=== PATIENT | male | born 1975 | race Caucasian/White ===

== ENCOUNTER 2023-07-04 08:56 | Outpatient (CLI) | payer OTHER ==
--- NOTE | 2023-07-06 14:31 | MRI Report ---
PROCEDURE: Shoulder LT WO INDICATIONS: L SHOULDER PAIN TECHNIQUE: Noncontrast oblique coronal T2 fast spin echo with fat saturation, oblique sagittal T1 spin echo and T2 fast spin echo with fat saturation, axial T1 spin echo and T2 fast spin echo with fat saturation t hrough the shoulder. COMPARISON: Shoulder radiograph dated 06/23/2021 and shoulder MRI dated 09/27/2020. FINDINGS: Image quality: Excellent. Rotator cuff: Full-thickness rupture involving distal supraspinatus at its insertion on humeral head is seen with up to 3.1 cm medial retraction of torn tendon fibers to the level of acromion. Moderate to high-grade articular surface partial-thickness tear involving distal infraspinatus at its insertio n on humeral head is also seen extending to muscular tendinous junction. Distal subscapularis tendon is intact. Mild supraspinatus muscle atrophy is noted on sagittal images. Bones and bursae: No bone marrow contusions or fractures. Moderate acromioclavicular joint osteoarth ritic changes are seen with joint space narrowing, subchondral sclerosis and downward osteophyte form ation depressing on musculotendinous junction of supraspinatus. Moderate joint effusion and subacromi al subdeltoid bursal fluid is seen, no gross loose bodies. Capsule and soft tissues: In the absence of intra-articular contrast, the labrum and glenohumeral li gaments appear intact. The long head of the biceps tendon demonstrates normal location and morpholog y. The rotator interval appears normal, without fibrosis. The coracohumeral ligament is normal in t hickness. IMPRESSION: 1. Full-thickness rupture involving distal supraspinatus at its insertion on humeral head with up to 3.1 cm medial retraction of torn tendon fibers to the level of acromion. Moderate grade articular chau face partial-thickness involving distal infraspinatus extending to muscular tendinous junction. Mild supraspinatus muscle atrophy. 2. Moderate acromioclavicular joint osteoarthritis. No fracture or dislocation. Moderate joint effusi on and subacromial subdeltoid bursal fluid, no gross loose bodies. 3. No evidence of focal labral tear. Reviewed by: Raimundo Cruz MD on 07/06/2023 2:30 PM PDT Approved by: Raimundo Cruz MD on 07/06/2023 2:30 PM PDT Station ID: [id number]
== END 2023-07-04 08:57 | disposition home or self-care (01) ==
LOC: DI 08:56
PROVIDERS: ATTEND Family Medicine
DX: S46.012A Strain of muscle(s) and tendon(s) of the rotator cuff of left shoulder, initial encounter (principal); M62.512 Muscle wasting and atrophy, not elsewhere classified, left shoulder; M19.012 Primary osteoarthritis, left shoulder; M25.412 Effusion, left shoulder; M75.52 Bursitis of left shoulder